=== PATIENT | female | born 1985 | race Caucasian/White ===

== ENCOUNTER 2018-01-23 02:01 | Emergency (ER) | payer BC ==
[~2018-01-23] VITALS: Ht 157.5 cm; Wt 59.8 kg
[2018-01-23] MEDS ORDERED: LIDOCAINE-MPF 1%, 2ML INFIL ONE (02:30)
[2018-01-23] MEDS ORDERED: LIDOCAINE-MPF 1%, 2ML ONE (02:32)
[2018-01-23] MEDS ORDERED: LIDOCAINE-MPF 2% ,5ML ONE (02:34)
[2018-01-23 03:19] VITALS: BP 122/86
== END 2018-01-23 03:22 | disposition home or self-care (01) ==
LOC: ED 02:40
DX: L02.11 Cutaneous abscess of neck (principal); L72.3 Sebaceous cyst
CPT/HCPCS: 10060; 99283